=== PATIENT | female | born 1975 | race Caucasian/White ===

== ENCOUNTER 2020-11-20 08:48 | Emergency (ER) | payer MEDICAID ==
[~2020-11-20] VITALS: Ht 154.9 cm; Wt 74.8 kg
[2020-11-20 08:54] VITALS: Ht 154.9 cm; Wt 74.8 kg
[2020-11-20] MEDS ORDERED: ACETAMINOPHEN-H1 TA1 PO (10:09)
[2020-11-20] MEDS ORDERED: MOT600 PO (10:09)
[2020-11-20] MEDS ORDERED: ROBAXIN-750750 MG PO (10:09)
[2020-11-20 10:38] VITALS: BP 134/74
== END 2020-11-20 10:38 | disposition home or self-care (01) ==
LOC: ED 08:48
DX: M54.40 Lumbago with sciatica, unspecified side (principal)
CPT/HCPCS: J1885